=== PATIENT | female | born 2000 | race Two or more races ===

== ENCOUNTER 2024-01-08 09:46 | Emergency (ER) | payer OTHER ==
[~2024-01-08] VITALS: Ht 142.2 cm; Wt 52.2 kg
[2024-01-08] MEDS ORDERED: diphenhydrAMINE 25 MG CAP PO ONE (10:07)
[2024-01-08] MEDS ORDERED: FAMOTIDINE 20 MG TABLET ONE (10:07)
[2024-01-08] MEDS ORDERED: predniSONE 20 MG TABLET ONE (10:08)
[2024-01-08] MEDS: FAMOTIDINE 20 MG TABLET PO ONE (10:16)
[2024-01-08] MEDS: predniSONE 20 MG TABLET PO ONE (10:16)
[2024-01-08] MEDS: diphenhydrAMINE 25 MG CAP PO ONE (10:16)
[2024-01-08] MEDS ORDERED: FAMO-132 PO (10:21)
[2024-01-08] MEDS ORDERED: PRED20TA PO (10:21)
[2024-01-08] MEDS ORDERED: EPIN0.3P3 IM (10:21)
[2024-01-08] MEDS ORDERED: DIPH25CA83 PO (10:21)
[2024-01-08 10:30] VITALS: BP 119/71; O2SAT 98
== END 2024-01-08 10:36 | disposition home or self-care (01) ==
LOC: ER 09:46
DX: T78.1XXA Other adverse food reactions, not elsewhere classified, initial encounter (principal); J45.909 Unspecified asthma, uncomplicated; Z88.0 Allergy status to penicillin; X58.XXXA Exposure to other specified factors, initial encounter
CPT/HCPCS: A4606; A4663; J7512; Q0163